=== PATIENT | male | born 1970 | race Caucasian/White ===

== ENCOUNTER 2021-03-31 19:55 | Inpatient (IN) | payer MEDICARE, OTHER ==
[~2021-03-31] VITALS: Ht 188 cm; Wt 103.4 kg
--- NOTE | 2021-03-31 20:01 | NUR ---
PT BIBPA FROM HOME PLACED ON A HOLD FOR DTO DUE TO WANTING TO KILL BROTHER AND HURTING FAMILY PER PA. ALSO, STATING FAMILY OWES HIM MONEY. PLACED IN BED 13 ON MONITOR AND PULSE OX. AWAITING ORDERS.
[2021-03-31 20:20] LABS: BASOPHILS # (AUTO) 0.1 K/uL (0.0-0.2); BASOPHILS % (AUTO) 0.6 % (0.0-2.0); EOSINOPHILS % (AUTO) 2.1 % (0.0-6.0); HEMATOCRIT 49 % (39-51); HEMOGLOBIN 16.1 g/dL (13.5-17.5); LYMPHOCYTES # (AUTO) 3.5 K/uL (0.8-4.8); LYMPHOCYTES % (AUTO) 26.8 % (20.0-44.0); MEAN CORPUSCULAR HGB CONC 33 g/dl (31.0-36.0); MEAN CORPUSCULAR VOLUME 84 fL (80-96); MONOCYTES # (AUTO) 0.9 K/uL (0.1-1.30); MONOCYTES % (AUTO) 6.8 % (2.0-12.0); NEUTROPHILS # (AUTO) 8.3 K/uL (1.8-8.9); NEUTROPHILS % (AUTO) 63.7 % (43.0-81.0); PLATELET COUNT (AUTO) 310 K/uL (150-450); RED BLOOD CELL COUNT(AUTO) 5.87 MIL/uL (4.5-6.0)
--- NOTE | 2021-03-31 20:25 | NUR ---
COVID SWAB COLLECTED AND SENT TO LAB
[2021-03-31 20:50] LABS: ACETAMINOPHEN < 2 ug/ml (10-30); ALANINE AMINOTRANSFERASE 40 U/L (12-78); ALBUMIN 4.1 g/dL (3.4-5.0); ALCOHOL, BLOOD < 3 mg/dL (0-0); ALKALINE PHOSPHATASE 103 U/L (46-116); ASPARTATE AMINOTRANSFERASE 14 U/L (15-37); BILIRUBIN,DIRECT 0.1 mg/dL (0.0-0.2); BILIRUBIN,TOTAL 0.3 mg/dL (0.2-1.0); CALCIUM, SERUM 9.3 mg/dL (8.5-10.1); CARBON DIOXIDE 24 mmol/L (21-32); CHLORIDE 102 mmol/L (98-107); CREATININE 0.9 mg/dL (0.6-1.3); GLUCOSE 124 mg/dL (74-106); POTASSIUM 3.6 mmol/L (3.5-5.1); SODIUM SERUM 139 mmol/L (136-145); TOTAL PROTEIN, SERUM 8.1 g/dL (6.4-8.2); UREA NITROGEN, BLOOD 11 mg/dL (7-18)
--- NOTE | 2021-03-31 22:18 | NUR ---
URINE COLLECTED AND SENT TO LAB
[2021-03-31 22:48] LABS: BILIRUBIN,URINE Negative (NEGATIVE); COLOR,URINE YELLOW (YELLOW); LEUKOCYTE ESTERASE ,URINE Negative (NEGATIVE); NITRITE, URINE Negative (NEGATIVE); PH,URINE 6.5 (5.0-8.0); PROTEIN,URINE 100 mg/dl (NEGATIVE); UGLUCOSE Negative (NEGATIVE); UROBILINOGEN,URINE 0.2 EU/dL (0.2)
[2021-03-31 22:49] LABS: RBC,URINE NONE SEEN /HPF (0-2); WBC,URINE NONE SEEN /HPF (0-3)
[2021-03-31 22:50] LABS: BACTERIA,URINE Rare /HPF (None Seen); SQUAMOUS EPITHELIAL CELL,UR Few /HPF (None Seen)
--- NOTE | 2021-03-31 23:37 | NUR ---
REPORT GIVEN TO CINTHIA CRYSTAL FOR CHARLENE
--- NOTE | 2021-03-31 23:57 | NUR ---
PT DOES NOT KNOW THE MEDICATION HE TAKES.
--- NOTE | 2021-04-01 00:03 | NUR ---
PATIENT TRANSFERRED TO GPS, VSS, NO ACUTE DISTRESS NOTED.
[2021-04-01] MEDS ORDERED: LURA40TA PO (00:30)
[2021-04-01] MEDS ORDERED: METF-442 PO (00:31)
[2021-04-01] MEDS ORDERED: GLIM2TAB31 PO (00:32)
[2021-04-01] MEDS ORDERED: OMEG1CAP PO (00:33)
[2021-04-01] MEDS ORDERED: ATOR40TA PO (00:34)
[2021-04-01] MEDS ORDERED: LORAZEPAM 1 MG TABLET PO PRN (01:00)
[2021-04-01] MEDS ORDERED: ZOLPIDEM TARTRATE 5 MG TABLET PO PRN (01:00)
[2021-04-01] MEDS ORDERED: MAGNESIUM HYDROXIDE 30 ML UDC PO PRN (01:00)
[2021-04-01] MEDS ORDERED: BLOOD SUGAR DIAGNOSTIC 1 EACH STRIP IN ONE (01:00)
[2021-04-01] MEDS ORDERED: MAG HYDROX/AL HYDROX/SIMETH 30 ML UDC PO PRN (01:00)
[2021-04-01] MEDS ORDERED: ACETAMINOPHEN 325 MG TABLET PO PRN (01:00)
[2021-04-01 01:24] VITALS: BP 129/74
[2021-04-01] MEDS ORDERED: hydrALAZINE HCL 10 MG TABLET PO PRN (01:30)
--- NOTE | 2021-04-01 02:41 | NUR ---
ADMISSION NOTES: ADMITTED THIS 51Y/O MALE PATIENT ADMIT FROM [facility] ER /HOME, ADMITTED TO GPS ON 5150 HOLD, PER HOLD DTO, CLIENT EXPERIENCING BOUTS OF ANGER, THE PT. WAS SENDING THREATING MESSAGES TO FAMILY MEMBERS, AGGRESSIVE WITH FAMILY MEMEBER , POSTURING WITH FAMILY AND FAMILY WORRIED ABOUT POTENTIAL VIOLENCE , ALEX BEHAVIOR , UPON FACE TO FACE ASSESSMENT PATIENT IS A&O X 3 , PARNOID DISHELVED ,EASILY GETS AGITATED, DISORGNIZED, REFUSED TO TAKE SHOWER DENIES SI /HI AT THIS TIME, PT. IS POOR HISTORIAN, POOR INSIGHT ,POOR JUDGEMENT, PT. DENIES SI HI AT THIS TIME , BOTH MD AWARE AND NOTIFIED OF THE ADMISSION, BELONGINGS CONTRABAND WERE DONE ,PT. RIGHTS DISCUSS BY COMMISSIONED FIRE OFFICER , PROVIDE THE PT. WITH HANDBOOK, AND MEDICATIONS GUIDE, ENVIRONMENTAL SAFETY CHECK DONE, ENCOURAGED PT. VERBALIZED ANY FEELING CONCERN TO STAFF, ORIENT TO UNIT POLICY, NO ACUTE DISTRESS NOTED,VITAL SIGNS WNL ,DENIES ANY PAIN AT THIS TIME,WILL CONTINUE TO MONITOR FOR Q15 SAFETY AND BEHAVIOR.
--- NOTE | 2021-04-01 07:30 | NUR ---
RN NOTES: PER PT. REQUEST MARII ROJAS ( FRIEND ) [phone] / [phone] TO BE NOTIFIED OF HIS ADMISSION , NO FAMILY MEMEBER ALLOWED TO NOTIFY PER PATIENT.
[2021-04-01 08:00] VITALS: BP 151/91
[2021-04-01] MEDS: METFORMIN 500 MG TABLET PO SCH ×2 (08:35→18:00)
[2021-04-01] MEDS: GLIMEPIRIDE 1 MG TABLET PO SCH (08:35)
[2021-04-01] MEDS: LITHIUM CARBONATE (300 MG CAP) 300 MG CAPSULE PO SCH ×2 (11:12→21:47)
--- NOTE | 2021-04-01 11:38 | NUR ---
JARON Initial Discharge: Patient currently resides at [address] [place] [address]; ([phone]). Patient lives with mother Taniya ([phone]). JARON will work with the treatment team and family to help coordinate appropriate discharge.
[2021-04-01 12:10] LABS: THYROID STIMULATING HORMONE 1.136 uIU/mL (0.358-3.74)
--- NOTE | 2021-04-01 13:09 | NUR ---
JARON Family Contact: JARON spoke with patient's sister Elisabeth ([phone]) who stated that since childhood pt has been diagnosed with Intellectual Disability. She reported that pt has been also diagnosed with Schizophrenia at the age of 18 and that he has always been on medications. He has been on Abilify for 18 years. Sister expressed that family has been encouraging pt to take care of himself but at times he has been resistant to care. Family stated that they have "family problems". 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 She expressed that pt lives with their mother Taniya ([phone]) who takes care of pt. JARON educated sister on 5148/7485 and the process of it. Sister was understanding.
--- NOTE | 2021-04-01 13:24 | NUR ---
RT NOTE PT REFUSED EKG AT THIS TIME. CINTHIA SCHMITZ AWARE.
--- NOTE | 2021-04-01 15:37 | NUR ---
PATIENT ENCOURAGED TO RECEIVE THE EKG FOR HEALTH AND SAFETY REASONS EXPLAINED AND EDUCATED REASONS FOR THIS AND IT WAS NOT AN INVASIVE PROCESS NOR PAINFUL. PATIENT STILL REFUSES TO HAVE EKG PERFORMED, STAFF SAID HE WAS INTIMIDATING AGGITATED AGGRESSIVE AND IN NO MOOD TO BE FORCED TO HAVE AN EKG SO THEY DID NOT ACCEPTED THE REFUSAL PER PATIENT REQUEST. WILL TRY TO RESCHEDULE ANOTHER TIME.
[2021-04-01 16:00] VITALS: BP 131/84
[2021-04-01] MEDS ORDERED: LURASIDONE HCL PO SCH (18:00)
--- NOTE | 2021-04-01 18:31 | NUR ---
PATIENT DEPRESSED, WOULD NOT PARTICIPATE IN ANY INDIVIDUAL NOR GROUP ACTIVITIES, DID NOT EAT ONE BITE FROM ANY MEALS NOR SNACKS, ENCOURAGED TO EAT AND DRINK, WATER WITH CUP AND ICE PROVIDED DRANK 2 GLASSES OF WATER, SLEPT MOST OF DAY SHIFT, REFUSED GLUCAPHAGE METFORMIN MEDICATION AND SUSPECTED OF SPITTING OUT OTHER MEDICATIONS DURING DAY SHIFT. BED LOW TO FLOOR, WHEELS LOCKED, MOOD WAS FLAT, SAD, AND VERY LITTLE INTERACTION OR COMMUNICATION .
[2021-04-01 20:06] VITALS: BP 134/94
[2021-04-01] MEDS: OLANZAPINE 5 MG TABLET PO SCH (22:06)
[2021-04-01] MEDS: ATORVASTATIN 40 MG TABLET PO SCH (22:06)
[2021-04-02] MEDS: GLIMEPIRIDE 1 MG TABLET PO SCH (06:42)
[2021-04-02 07:25] LABS: BASOPHILS % (AUTO) 0.5 % (0.0-2.0); EOSINOPHILS % (AUTO) 3.6 % (0.0-6.0); HEMATOCRIT 48 % (39-51); HEMOGLOBIN 16.1 g/dL (13.5-17.5); LYMPHOCYTES # (AUTO) 2.6 K/uL (0.8-4.8); LYMPHOCYTES % (AUTO) 30.8 % (20.0-44.0); MEAN CORPUSCULAR HGB CONC 33 g/dl (31.0-36.0); MEAN CORPUSCULAR VOLUME 85 fL (80-96); MONOCYTES # (AUTO) 0.7 K/uL (0.1-1.30); MONOCYTES % (AUTO) 8.1 % (2.0-12.0); NEUTROPHILS # (AUTO) 4.9 K/uL (1.8-8.9); PLATELET COUNT (AUTO) 294 K/uL (150-450); RED BLOOD CELL COUNT(AUTO) 5.71 MIL/uL (4.5-6.0); WHITE BLOOD COUNT (AUTO) 8.6 K/uL (4.3-11.0)
[2021-04-02 07:33] LABS: CREATININE 1.1 mg/dL (0.6-1.3); POTASSIUM 4.5 mmol/L (3.5-5.1)
[2021-04-02 08:00] VITALS: BP 116/72
[2021-04-02] MEDS: METFORMIN 500 MG TABLET PO SCH ×3 (08:00→18:00)
[2021-04-02] MEDS: LITHIUM CARBONATE (300 MG CAP) 300 MG CAPSULE PO SCH ×3 (08:35→21:00)
--- NOTE | 2021-04-02 11:50 | NUR ---
GPS/RN PT REFUSED AM MEDS AND BREAKFAST. ENCOURAGED ON NUMEROUS OCCASIONS. PT REFUSED TO EAT LUNCH WELL.
--- NOTE | 2021-04-02 18:07 | NUR ---
GPS/RN PT REFUSED 1800 MEDS. REFUSED TO EAT
[2021-04-02] MEDS: ATORVASTATIN 40 MG TABLET PO SCH (22:00)
[2021-04-02] MEDS: OLANZAPINE 5 MG TABLET PO SCH (22:00)
--- NOTE | 2021-04-02 22:19 | NUR ---
RN NOTES: REFUSAL OF MEDICATIONS PT. REFUSED NIGHT SCHEDULE MEDS , LITHIUM 300 MG PO,ZYPREXA 5 MG PO, LIPITOR 40 MG PO , ENCOURAGED X3 RISKS AND BENFITS EXPLINED , PT. STRONGLY REFUSED ,PT. BEHAVIOR EASILY AGITATED .
--- NOTE | 2021-04-02 22:23 | NUR ---
RN NOTES: REFUSED SKIN ASSESSMENT PT. REFUSED FULL BODY SKIN ASSESSMENT AND PICTURES TAKEN , ENCOURAGED X3 RISKS AND BENFITS EXPLINED , PT. STRONGLY REFUSED ,
[2021-04-03] MEDS: GLIMEPIRIDE 1 MG TABLET PO SCH (07:30)
[2021-04-03] MEDS: METFORMIN 500 MG TABLET PO SCH ×2 (08:00→18:00)
[2021-04-03] MEDS: LITHIUM CARBONATE (300 MG CAP) 300 MG CAPSULE PO SCH ×2 (08:45→22:01)
[2021-04-03 19:42] VITALS: BP 119/64
--- NOTE | 2021-04-03 20:58 | NUR ---
RN NOTE: REFUSED VITALS PATIENT REFUSED VITALS TO BE CHECKED X 3 DESPITE OF RISKS AND BENEFITS EXPLANATIONS, UNCOOPERATIVE WITH PLAN OF CARE AT THIS TIME.
[2021-04-03] MEDS: ATORVASTATIN 40 MG TABLET PO SCH (22:05)
--- NOTE | 2021-04-03 22:15 | NUR ---
RN NOTE: VITALS CHECKED PATIENT AGREED TO CHECK HIS VITALS AFTER ENCOURAGEMENT AND EXPLANATIONS 147/90, 78, 20, 97.5, 99% AT ROOM AIR.
[2021-04-03] MEDS: OLANZAPINE 5 MG TABLET PO SCH (22:19)
[2021-04-03 22:20] VITALS: BP 147/90
--- NOTE | 2021-04-03 22:30 | NUR ---
RN NOTE PATIENT NEEDED LOTS OF ENCOURAGEMENT TO TAKE HIS MEDICATIONS, AFTER EXPLANATIONS, PATIENT AGREED TO TAKE MEDICINES ORDERED AT 2100 and 2200. MARII (PER PATIENT MARII IS HIS FRIEND AND HE ONLY WANTS TO TALK TO HER, NOT TO ANY OF HIS FAMILY MEMBER VIA PHONE DURING HIS STAY AT [facility]) CALLED TO SEE IF SHE CAN TALK TO THE PATIENT TO ENCOURAGE HIM TO TAKE HIS MEDICINE. INFORMED MARII THAT PATIENT DID AGREE TO EAT & DRINK AFTER ENCOURAGEMENTS & VAMP LINER WOULD ENCOURAGE THE PATIENT TO TAKE HIS MEDICINE WELL. PATIENT HAD PLENTY OF SNACK/PO FLUIDS AND TOOK NIGHT TIME MEDICATIONS WELL. WILL CONTINUE TO MONITOR FOR ANY CHANGE OF CONDITION.
[2021-04-04] MEDS: GLIMEPIRIDE 1 MG TABLET PO SCH (07:30)
[2021-04-04 08:00] VITALS: BP 135/88
[2021-04-04] MEDS: METFORMIN 500 MG TABLET PO SCH ×2 (08:00→17:52)
[2021-04-04] MEDS: LITHIUM CARBONATE (300 MG CAP) 300 MG CAPSULE PO SCH ×2 (09:00→21:15)
[2021-04-04 16:00] VITALS: BP 121/76
[2021-04-04 19:40] VITALS: BP 124/78
[2021-04-04] MEDS: ATORVASTATIN 40 MG TABLET PO SCH (21:15)
[2021-04-04] MEDS: OLANZAPINE 5 MG TABLET PO SCH (21:15)
[2021-04-05 08:00] VITALS: BP 94/74
[2021-04-05] MEDS: METFORMIN 500 MG TABLET PO SCH ×2 (08:10→17:14)
[2021-04-05] MEDS: LITHIUM CARBONATE (300 MG CAP) 300 MG CAPSULE PO SCH ×2 (08:10→21:04)
[2021-04-05] MEDS: GLIMEPIRIDE 1 MG TABLET PO SCH (08:10)
[2021-04-05 16:03] VITALS: BP 96/73
[2021-04-05 20:00] VITALS: BP 119/81
[2021-04-05] MEDS: OLANZAPINE 5 MG TABLET PO SCH (21:04)
[2021-04-05] MEDS: ATORVASTATIN 40 MG TABLET PO SCH (21:04)
[2021-04-06 08:00] VITALS: BP 108/81
[2021-04-06] MEDS: METFORMIN 500 MG TABLET PO SCH ×2 (08:04→17:26)
[2021-04-06] MEDS: GLIMEPIRIDE 1 MG TABLET PO SCH (08:04)
[2021-04-06] MEDS: LITHIUM CARBONATE (300 MG CAP) 300 MG CAPSULE PO SCH ×2 (08:04→21:10)
--- NOTE | 2021-04-06 09:49 | NUR ---
Department of Mental Health: SW attempted to contact Juan Perkins staff psychologist who placed the pt on 5150 hold ([phone]). JARON spoke with hot die press operator Ade who stated that they cannot find pt in the system or Juan Perkins. JARON was unable to find any information regarding if the SW made Tarasoff warning.
--- NOTE | 2021-04-06 10:17 | NUR ---
SW Coordination of Care: Patient will follow up with (Psychiatrist) Dr. Mejia located at [facility] located at [address] [place] [address]; ([phone]), per Doctor Jcakie she reported that director of casework department will contact pt to arrange appointment.
--- NOTE | 2021-04-06 10:24 | NUR ---
Patient will follow up with (Cleaning Machine Operator) Dr. Schultz, located at [facility] [address] [place] [address] ([phone]) on April 22 at 8:40AM, coordinated by Bushra senior receptionist.
--- NOTE | 2021-04-06 11:18 | NUR ---
JARON Coordination of Care: JARON received a call from Kristi disability case manager stating, patient will follow up with (Psychiatrist) Dr. Mejia located at [facility] located at [address] [place] [address]; ([phone]) on April 06 at 3:30PM.
--- NOTE | 2021-04-06 11:31 | NUR ---
JARON Note: SW met with patient and discussed the threatening text messages he had mentioned to on the 0. Pt stated that he is fully committed to becoming better and stated "I did not mean the text messages I sent, it was out of anger".
--- NOTE | 2021-04-06 11:32 | NUR ---
Jen: JARON contacted patient's family members and stated pt will be discharged end of this week 04/09. SW reported that pt denies HI and has been denying it at the hospital upon admission, stating that the threatening text messages that was sent out was out of "anger" and he did not mean it. SW contacted patient's sister Elisabeth ([phone]) and notified of pt's dc and pt denies HI. JARON contacted patient's mother Britni ([phone]) and notified of pt's dc and pt denies HI. SW contacted patient's sister Nancie ([phone]) and notified of pt's dc and pt denies HI. SW left a detailed voicemail. JARON contacted patient's Nephew Audie ([phone]) and notified of pt's dc and pt denies HI. SW left a detailed voicemail. JARON contacted patient's brother in law Marck ([phone]) and notified pt's dc and pt denies HI.
--- NOTE | 2021-04-06 12:05 | NUR ---
JARON Coordination of Care: SW received a call from Kristi case finishing machine adjuster stating, patient will follow up with (Psychiatrist) Dr. Mejia located at [facility] located at [address] [place] [address]; ([phone]) on April 11 at 1PM, she changed appointment date.
[2021-04-06 16:00] VITALS: BP 129/78
[2021-04-06 20:00] VITALS: BP 118/90
[2021-04-06] MEDS: ATORVASTATIN 40 MG TABLET PO SCH (21:10)
[2021-04-06] MEDS: OLANZAPINE 5 MG TABLET PO SCH (21:10)
[2021-04-07 08:00] VITALS: BP 88/55
[2021-04-07] MEDS: GLIMEPIRIDE 1 MG TABLET PO SCH (08:03)
[2021-04-07] MEDS: LITHIUM CARBONATE (300 MG CAP) 300 MG CAPSULE PO SCH ×4 (08:03→16:37)
[2021-04-07] MEDS: METFORMIN 500 MG TABLET PO SCH ×2 (08:04→17:35)
--- NOTE | 2021-04-07 09:21 | NUR ---
RN-CO: [place] 300 mg given PO at 0803 AM.
--- NOTE | 2021-04-07 13:03 | NUR ---
Court Hearing: Patient's court hearing for 5250 is today and it is upheld for GD and danger to others.
[2021-04-07 16:00] VITALS: BP 126/79
--- NOTE | 2021-04-07 19:30 | NUR ---
GPS RN NOTE, RECEIVED PATIENT AWAKE AND IN BED, NO S/S OR COMPLAINTS OF PAIN AT THIS TIME. PATIENT IS DISPLAYING NO S/S OF APPARENT DISTRESS AT THIS TIME. PATIENT BREATHING IS UNLABORED WITH EQUAL RISE AND FALL OF THE CHEST. PATIENT IS ALERT AND ORIENTED X 3 ON ROOM AIR WITH A SPO2 97%. PATIENT IS COMPLIANT WITH MEDICATIONS, DEPRESSED, ANXIOUS AT TIMES, AND COOPERATIVE. PATIENT DENIES SUICIDAL AND HOMICIDAL IDEATIONS AT THIS TIME. PATIENT ASSISTED WITH TURNING AND REPOSITIONING Q2HR AND PRN FOR COMFORT AND CIRCULATION. PATIENT HAS NO NEEDS AT THIS TIME. PATIENT EDUCATED ON THE USE OF THE CALL CONWAY. PATIENT BED SIDE RAILS UP X 2 FOR SAFETY. PATIENT BED IS LOCKED, LOW, WITH BED ALARM ON. WILL CONTINUE TO MONITOR THIS PATIENT Q15 MINUTES WITH THE HELP OF STAFF TO MAINTAIN SAFETY.
[2021-04-07 20:00] VITALS: BP 133/89
[2021-04-07] MEDS: OLANZAPINE 5 MG TABLET PO SCH (21:18)
[2021-04-07] MEDS: ATORVASTATIN 40 MG TABLET PO SCH (21:18)
[2021-04-08 08:00] VITALS: BP 123/67
[2021-04-08] MEDS: METFORMIN 500 MG TABLET PO SCH ×2 (08:02→17:07)
[2021-04-08] MEDS: LITHIUM CARBONATE (300 MG CAP) 300 MG CAPSULE PO SCH ×3 (08:02→17:05)
[2021-04-08] MEDS: GLIMEPIRIDE 1 MG TABLET PO SCH (08:03)
--- NOTE | 2021-04-08 09:09 | NUR ---
JARON NOTE/Tarasoff: JARON contacted patient's sister Jaleesa ([phone]) and notified of pt's dc and pt denies HI. JARON contacted patient's sister Elisabeth ([phone]) and notified of pt's dc and pt denies HI. JARON contacted patient's mother Britni ([phone]) and notified of pt's dc and pt denies HI. JARON contacted patient's sister Nancie ([phone]) and notified of pt's dc and pt denies HI. SW left a detailed voicemail. JARON contacted patient's Nephew Audie ([phone]) and notified of pt's dc and pt denies HI. JARON left a detailed voicemail. JARON contacted patient's brother in law Marck ([phone]) and notified pt's dc and pt denies HI.
--- NOTE | 2021-04-08 09:11 | NUR ---
Sunday DISCHARGE: Patient will be discharged home to [address] [place] [address]; ([phone]). Patient's friend Shelly ([phone]) will mushroom picker pt at 9AM. Upon discharge, patient appear to be calm, cooperative and happy to be going home. Patients sister Elisabeth is aware of discharge. Patient denies suicidal and homicidal ideation. Patient denies visual/auditory hallucinations. Patient will follow up with (Building Maintenance Superintendent) Dr. Schultz, located at [place] [id number] ([phone]) on April 22 at 8:40AM. Patient will follow up with (Psychiatrist) Dr. Mejia located at [facility] located at [address] [place] [id number]; ([phone]) on April 11 at 1PM. Patient presents with euthymic mood and congruent affect.
[2021-04-08 16:00] VITALS: BP 119/76
[2021-04-08 19:51] VITALS: BP 117/75
[2021-04-08 20:00] VITALS: BP 117/75
[2021-04-08] MEDS: ATORVASTATIN 40 MG TABLET PO SCH (20:50)
[2021-04-08] MEDS: OLANZAPINE 5 MG TABLET PO SCH (20:51)
--- NOTE | 2021-04-09 05:13 | NUR ---
Closing notes: went to bed 10PM in [facility] speaks of going home i AM pleasent and calm
[2021-04-09 08:00] VITALS: BP 102/75
[2021-04-09] MEDS: LITHIUM CARBONATE (300 MG CAP) 300 MG CAPSULE PO SCH (09:08)
[2021-04-09] MEDS: GLIMEPIRIDE 1 MG TABLET PO SCH (09:08)
[2021-04-09] MEDS: METFORMIN 500 MG TABLET PO SCH (09:08)
--- NOTE | 2021-04-09 10:09 | NUR ---
GPS SENIOR NET APPLICATION DEVELOPER NOTE: PATIENT DISCHARGE HOME PICKED UP BY HIS NEPHEW HELEN CALL FRIEND MARII TO VERIFIED IF PT WILL BE PICKED UP BY NEPHEW .MARII AND PT AGREED , PATIENT DC WITH STABLE CONDITION , VSS NO S/S DISTRESS NOTED, DENIES SI/HI AVH,COMPLIANT WITH MEDICATIONS , COOPERATIVE, SELF CARE. HOME HEALTH ORDERED. PT EXPLAIN FOLLOW UP; APPT,MEDICATIONS MGMT, HOME HEALTH INSTRUCTION. DR HOLDEN DC HOLD, DR PADRON NOTIFIED WITH CONTINUE MEDICATIONS. ALL BELONGINGS AND VALUABLES RETUNED TO PT .
== END 2021-04-09 09:55 | disposition home or self-care (01) | DRG 885 ==
LOC: ER 19:58 → GPS 23:49
PROVIDERS: ADMIT Psychiatry & Neurology Psychiatry; ATTEND Student in an Organized Health Care Education/Training Program
DX: F25.0 Schizoaffective disorder, bipolar type (principal); F79 Unspecified intellectual disabilities; F29 Unspecified psychosis not due to a substance or known physiological condition; Z20.822 Contact with and (suspected) exposure to COVID-19; E78.00 Pure hypercholesterolemia, unspecified; I10 Essential (primary) hypertension; Z87.19 Personal history of other diseases of the digestive system; E78.5 Hyperlipidemia, unspecified; D72.829 Elevated white blood cell count, unspecified; R73.9 Hyperglycemia, unspecified
CPT/HCPCS: 36415; 80048-TC; 80061-TC; 80076-TC; 81001; 82962-TC; 84439-TC; 84443-TC; 85025-TC; 87081-TC; C9803; G0480